=== PATIENT | male | born 1935 | race African-American/Black ===

== ENCOUNTER 2016-09-02 18:22 | Emergency (ER) | payer OTHER ==
[~2016-09-02] VITALS: Ht 177.8 cm; Wt 75.0 kg
[~2016-09-02 18:22] MED LIST: LISI-651
[2016-09-02] MEDS ORDERED: SODIUM CHLORIDE 0.9% 500 ML IV ONE (19:18)
[2016-09-02 19:32] LABS: BASOPHILS % 0.4 % (0.0-2.0); HEMATOCRIT. 41.3 % (42.0-52.0); HEMOGLOBIN. 13.8 g/dL (14.0-18.0); LYMPHOCYTES % 22.2 % (20.0-50.0); MEAN CORPUSCULAR HEMOGLOBIN 30.7 pg (28.0-32.0); MEAN CORPUSCULAR HGB CONC 33.4 g/dL (31.0-37.0); MEAN CORPUSCULAR VOLUME 91.9 fL (80.0-94.0); MEAN PLATELET VOLUME 8.7 fl (7.4-10.4); MONOCYTES % 11.6 % (2.0-8.0); NEUTROPHILS % 64.8 % (40.0-76.0); PLATELET 189 x1000/uL (130-400); WHITE BLOOD COUNT 5.5 x1000/uL (4.5-11.0)
[2016-09-02 19:39] LABS: PROTHROMBIN TIME 10.9 sec
[2016-09-02 19:43] LABS: ALBUMIN 3.8 g/dL (3.4-5.0); ANION GAP 14; CARBON DIOXIDE 29 mEq/L (21-32); CHLORIDE 100 mEq/L (98-107); ETHANOL BLOOD < 10 mg/dL; INDEX HEMOLYSI 1 (1-3); INDEX ICTERIC 1 (1-4); INDEX LIPEMIC 1 (1-3); UREA NITROGEN BLOOD 31 mg/dL (7-21)
[2016-09-02 19:47] LABS: ALANINE AMINOTRANSFERASE 27 IU/L (13-61); eGFR 47 mL/min (>60)
[2016-09-02 19:49] LABS: NT PRO B-TYPE NATRIURETIC PEP 142 pg/mL (5-125); TROPONIN I < 0.02 ng/mL (0.00-0.04)
[2016-09-02 20:23] LABS: *AMPHETAMINES SCREEN URINE NEGATIVE (NEGATIVE); *BARBITURATES SCREEN URINE NEGATIVE (NEGATIVE); *BENZODIAZEPINES SCREEN URINE NEGATIVE (NEGATIVE); *COCAINE SCREEN URINE NEGATIVE (NEGATIVE); CANNABINOID URINE SCREEN NEGATIVE (NEGATIVE); ECSTASY MDMA SCREEN URINE NEGATIVE (NEGATIVE); METHADONE URINE SCREEN NEGATIVE (NEGATIVE); OPIATES URINE SCREEN NEGATIVE (NEGATIVE); PHENCYCLIDINE URINE SCREEN NEGATIVE (NEGATIVE)
[2016-09-02] MEDS ORDERED: ASPIRIN 81MG TABLET PO ONE (20:45)
[2016-09-02] MEDS ORDERED: POTASSIUM CHLORIDE 20MEQ TABLET SR PO ONE (20:45)
[2016-09-02 21:52] VITALS: BP 129/89
== END 2016-09-02 22:33 | disposition short-term general hospital (02) ==
LOC: ER 18:23
DX: R55 Syncope and collapse (principal); I10 Essential (primary) hypertension; Z79.899 Other long term (current) drug therapy; Z88.8 Allergy status to other drugs, medicaments and biological substances; I63.9 Cerebral infarction, unspecified
CPT/HCPCS: 36415; 70450; 71010; 80053; 80305; 83880; 84484; 85025; 85610; 93005; 96360; 96361; 99285; G0482; J7030

== ENCOUNTER 2021-12-08 19:13 | Emergency (ER) | payer OTHER ==
[~2021-12-08] VITALS: Ht 177.8 cm; Wt 82.1 kg
[2021-12-08] MEDS ORDERED: IOHEXOL-350 100 ML BOTTLE ONE ×2 (19:52→20:12)
[2021-12-08 21:21] LABS: CHLORIDE 103 mEq/L (98-107)
[2021-12-08 21:24] LABS: HEMATOCRIT. 47.6 % (42.0-52.0); HEMOGLOBIN. 15.7 g/dL (14.0-18.0); MEAN CORPUSCULAR VOLUME 91.2 fL (80.0-94.0); MEAN PLATELET VOLUME 8.1 fl (7.4-10.4); PLATELET 168 x1000/uL (130-400); RED BLOOD CELL COUNT 5.22 mill/uL (4.7-6.1); RED CELL DISTRIBUTION WIDTH 14.7 % (11.6-14.6)
[2021-12-08 21:32] LABS: CREATINE KINASE 221 IU/L (39-308); ETHANOL BLOOD < 10 mg/dL
[2021-12-08 22:19] LABS: PLATELET ESTIMATE NORMAL
[2021-12-08 23:21] LABS: CLARITY URINE CLEAR (CLEAR); COLOR URINE YELLOW (YELLOW); KETONES URINE TRACE (NEGATIVE); LEUKOCYTE ESTERASE URINE NEGATIVE (NEGATIVE); NITRITE URINE NEGATIVE (NEGATIVE); OCCULT BLOOD URINE NEGATIVE (NEGATIVE); PH URINE 7.5 (4.5-8.0); PROTEIN URINE 1+ (NEGATIVE); SPECIFIC GRAVITY URINE 1.023 (1.005-1.030)
[2021-12-08 23:42] LABS: *AMPHETAMINES SCREEN URINE NEGATIVE (NEGATIVE); *BARBITURATES SCREEN URINE NEGATIVE (NEGATIVE); *BENZODIAZEPINES SCREEN URINE NEGATIVE (NEGATIVE); *COCAINE SCREEN URINE NEGATIVE (NEGATIVE); CANNABINOID URINE SCREEN NEGATIVE (NEGATIVE); METHADONE URINE SCREEN NEGATIVE (NEGATIVE); OPIATES URINE SCREEN NEGATIVE (NEGATIVE); PHENCYCLIDINE URINE SCREEN NEGATIVE (NEGATIVE)
[2021-12-09 03:52] VITALS: BP 156/88
== END 2021-12-09 03:55 | disposition short-term general hospital (02) ==
LOC: ER 19:13
DX: R41.82 Altered mental status, unspecified (principal); N17.9 Acute kidney failure, unspecified; F03.90 Unspecified dementia, unspecified severity, without behavioral disturbance, psychotic disturbance, mood disturbance, and anxiety; I10 Essential (primary) hypertension
CPT/HCPCS: 36415; 70450; 70496; 70498; 71045; 80053; 80305; 80320; 81003; 82550; 83605; 83690; 84484; 85025; 93005; 99285; Q9967; G0480

== ENCOUNTER 2024-03-25 16:52 | Inpatient (IN) | payer OTHER ==
[~2024-03-25] VITALS: Ht 170.2 cm; Wt 78.2 kg
[2024-03-25] MEDS: SODIUM CHLORIDE 0.9% 1000ML BAG (SEPSIS BOLUS) IV ONE (17:10)
[2024-03-25 17:54] LABS: CARBON DIOXIDE 22 mEq/L (21-32)
[2024-03-25 17:55] LABS: CHLORIDE 101 mEq/L (98-107); POTASSIUM 5.3 mEq/L (3.5-5.1); SODIUM 134 mEq/L (136-145)
[2024-03-25 17:57] LABS: INR 1.1; PROTHROMBIN TIME 12.5 sec (9.6-11.0)
[2024-03-25 17:58] LABS: DIFFERENTIAL COMMENT 1; HEMATOCRIT. 53.6 % (42.0-52.0); HEMOGLOBIN. 18.1 g/dL (14.0-18.0); MEAN CORPUSCULAR HEMOGLOBIN 31.1 pg (28.0-32.0); MEAN CORPUSCULAR HGB CONC 33.9 g/dL (31.0-37.0); MEAN CORPUSCULAR VOLUME 91.9 fL (80.0-94.0); MEAN PLATELET VOLUME 8.7 fl (7.4-10.4); PLATELET 171 x1000/uL (130-400); RED BLOOD CELL COUNT 5.83 mill/uL (4.7-6.1); RED CELL DISTRIBUTION WIDTH 15.9 % (11.6-14.6); WHITE BLOOD COUNT 4.5 x1000/uL (4.5-11.0)
[2024-03-25 17:59] LABS: CREATININE 1.8 mg/dL (0.6-1.3); GLUCOSE 122 mg/dL (70-105); UREA NITROGEN BLOOD 22 mg/dL (9-23)
[2024-03-25 18:00] LABS: TROPONIN I HIGH SENSITIVITY 35 ng/L (3.0-53)
[2024-03-25 18:01] LABS: ALANINE AMINOTRANSFERASE 31 IU/L (10-49); ALBUMIN 4.9 g/dL (3.2-4.8); ASPARTATE AMINOTRANSFERASE 55 IU/L (<34); BILIRUBIN DIRECT 0.7 mg/dL (<=3.0); PROTEIN TOTAL 8.8 g/dL (6.0-8.3)
[2024-03-25 18:05] LABS: LACTIC ACID 3.7 mmol/L (0.4-2.0)
[2024-03-25] MEDS: CEFTRIAXONE 2GM/50ML 50 ML IV ONE (18:05)
[2024-03-25] MEDS: ACETAMINOPHEN 325MG TABLET PO STA (18:06)
[2024-03-25 19:42] LABS: PLATELET ESTIMATE NORMAL
[2024-03-25] MEDS ORDERED: ONDANSETRON HCL 4MG/2ML INJ IV PRN (20:30)
[2024-03-25] MEDS ORDERED: DOCUSATE SODIUM 100MG CAPSULE PO PRN (20:30)
[2024-03-25] MEDS ORDERED: SODIUM POLYSTYRENE SULFONATE 15 G/60 ML BOT PO ONE (20:30)
[2024-03-25] MEDS ORDERED: ACETAMINOPHEN 325MG TABLET PO PRN ×2 (20:30)
[2024-03-25] MEDS ORDERED: GUAIFENESIN 200MG/10ML SUGAR FREE UDC PO PRN (20:30)
[2024-03-25] MEDS ORDERED: IPRATROPIUM/ALBUTEROL 0.5-3(2.5)MG/3ML NEB HHN PRN (21:35)
[2024-03-25] MEDS: SODIUM ZIRCONIUM CYCLOSILICATE 10GM/PACKET PO NR (21:39)
[2024-03-25] MEDS: SODIUM CHLORIDE 0.9% 1,000 ML IV SCH (22:17)
[2024-03-25 22:33] LABS: CLARITY URINE CLEAR (CLEAR); COLOR URINE YELLOW (YELLOW); GLUCOSE URINE NEGATIVE (NEGATIVE); KETONES URINE TRACE (NEGATIVE); LEUKOCYTE ESTERASE URINE NEGATIVE (NEGATIVE); NITRITE URINE NEGATIVE (NEGATIVE); OCCULT BLOOD URINE TRACE (NEGATIVE); PH URINE 6.5 (4.5-8.0); PROTEIN URINE 2+ (NEGATIVE); SPECIFIC GRAVITY URINE 1.014 (1.005-1.030)
[2024-03-25 22:36] LABS: *AMPHETAMINES SCREEN URINE NEGATIVE (NEGATIVE); *BARBITURATES SCREEN URINE NEGATIVE (NEGATIVE); *BENZODIAZEPINES SCREEN URINE NEGATIVE (NEGATIVE); *COCAINE SCREEN URINE NEGATIVE (NEGATIVE); CANNABINOID URINE SCREEN NEGATIVE (NEGATIVE); ECSTASY MDMA SCREEN URINE NEGATIVE (NEGATIVE); METHADONE URINE SCREEN NEGATIVE (NEGATIVE); OPIATES URINE SCREEN NEGATIVE (NEGATIVE); PHENCYCLIDINE URINE SCREEN NEGATIVE (NEGATIVE)
[2024-03-25 23:11] LABS: BACTERIA URINE NONE SEEN; RBC URINE NONE SEEN /hpf (0-2); SQUAMOUS EPITHELIAL CELL URINE RARE /lpf (RARE/1+); WBC URINE NONE SEEN /hpf (0-2)
[2024-03-26] VITALS (8 sets, daily range): BP systolic 119–160; BP diastolic 78–106; PULSE 69–86; RESP 12–19; TEMP 36.3918–37.2252; O2SAT 94–100
[2024-03-26] MEDS: ENOXAPARIN 30MG/0.3ML SYR SUBCUT SCH (09:58)
[2024-03-26 11:31] LABS: HEMATOCRIT 50.1 % (42.0-52.0); HEMOGLOBIN 16.2 g/dL (14.0-18.0); MEAN CORPUSCULAR HGB CONC 32.4 g/dL (31.0-37.0); MEAN CORPUSCULAR VOLUME 92.6 fL (80.0-94.0); PLATELET 136 x1000/uL (130-400); RED BLOOD CELL COUNT 5.41 mill/uL (4.7-6.1); RED CELL DISTRIBUTION WIDTH 15.7 % (11.6-14.6); WHITE BLOOD COUNT 3.4 x1000/uL (4.5-11.0)
[2024-03-26 11:46] LABS: POTASSIUM 3.5 mEq/L (3.5-5.1)
[2024-03-26 11:52] LABS: CREATINE KINASE MB FRACTION 10.9 ng/mL (0.5-3.6); CREATININE 1.5 mg/dL (0.6-1.3)
[2024-03-26] MEDS: CLONIDINE 0.1MG TABLET PO PRN (12:18)
[2024-03-26] MEDS ORDERED: CEFTRIAXONE 2GM/50ML 50 ML IV SCH (18:00)
[2024-03-26] MEDS: CEFTRIAXONE 2GM/50ML 50 ML IV SCH (20:33)
[2024-03-26] MEDS: FAMOTIDINE 20MG TABLET PO SCH (20:33)
[2024-03-27] VITALS (12 sets, daily range): BP systolic 102–174; BP diastolic 83–134; PULSE 63–112; RESP 14–23; TEMP 36.22512–37.11408; O2SAT 94–98
[2024-03-27] MEDS: MUPIROCIN 2% OINT 22GM TOP SCH (11:18)
[2024-03-27] MEDS: LATANOPROST 0.005% OPHTH DROPS 2.5ML BOTHEYE SCH (20:06)
[2024-03-28] VITALS (10 sets, daily range): BP systolic 135–166; BP diastolic 75–124; PULSE 69–86; RESP 10–21; TEMP 36.3918–36.9474; O2SAT 94–99
== END 2024-03-28 18:30 | disposition short-term general hospital (02) | DRG 871 ==
LOC: ER 16:52 → EDBEDREQ 19:48 → EDBEDREQSVC 19:48 → EDBEDREQTM 19:48 → 5EST 03-26 08:19
PROVIDERS: ADMIT Internal Medicine; ATTEND Internal Medicine
DX: A41.9 Sepsis, unspecified organism (principal); G93.41 Metabolic encephalopathy; E87.20 Acidosis, unspecified; E87.5 Hyperkalemia; Z20.822 Contact with and (suspected) exposure to COVID-19; F03.90 Unspecified dementia, unspecified severity, without behavioral disturbance, psychotic disturbance, mood disturbance, and anxiety; N40.0 Benign prostatic hyperplasia without lower urinary tract symptoms; L02.92 Furuncle, unspecified; I12.9 Hypertensive chronic kidney disease with stage 1 through stage 4 chronic kidney disease, or unspecified chronic kidney disease; N18.9 Chronic kidney disease, unspecified
CPT/HCPCS: 36415; 71045; 80048; 80076; 80305; 81003; 82553; 83605; 83880; 84145; 84484; 85025; 85027; 87070; 87420; 87426; 87804; 93005; 93970; 97162; 99291; J0696; J1650; J7030